=== PATIENT | male | born 1955 | race African-American/Black ===

== ENCOUNTER 2019-01-21 12:27 | Emergency (ER) | payer OTHER ==
[~2019-01-21] VITALS: Ht 172.7 cm; Wt 81.6 kg
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
[2019-01-21] MEDS ORDERED: Methocarbamol 750mg tab ORAL ONE (13:00)
--- NOTE | 2019-01-21 13:20 | NUR ---
ED Nurse Note:pt. had x-rays done
[2019-01-21] MEDS ORDERED: ROBAXIN-750750 MG PO (14:03)
[2019-01-21] MEDS ORDERED: ACETAMINOPHEN-1 EAC1 ORAL (14:03)
[2019-01-21] MEDS ORDERED: IBUPROFEN600 MG ORAL (14:03)
[2019-01-21] MEDS ORDERED: LIDODERM700 M1 TOPIC (14:03)
[2019-01-21 14:06] VITALS: BP 165/98
--- NOTE | 2019-01-21 14:10 | NUR ---
ER DISCHARGE NOTE: Patient is cleared to be discharged per ERMD, pt is aox4, on room air, with stable vital signs. pt was given dc and prescription instructions, pt was able to verbalize understanding, pt is able to ambulate with steady gait. pt took all belongings.
[2019-01-21 14:49] VITALS: BP 165/98
--- NOTE | 2019-01-22 13:04 | Diagnostic Imaging Report ---
Indication: Back pain Comparison: None Findings: 3 views of the lumbar spine were obtained. Bones are osteopenic. There is narrowing of L4-5 disc with vacuum phenomena demonstrated. Mild endplate spur formation noted. Sclerosis of the facets demonstrated multiple levels. IMPRESSION: No acute injury. Degenerative disc disease L4-5. Multilevel facet arthropathy
--- NOTE | 2019-01-22 13:07 | Diagnostic Imaging Report ---
Indication: Right wrist pain Findings: 3 views of the right wrist were obtained. There is no obvious acute fracture identified. There is arthrosis of the radiocarpal joint with narrowing and chondrocalcinosis which includes the TFCC. There is widening of the scapholunate distance indicative of scapholunate dissociation. There is generalized soft tissue swelling present about the wrist. There may be slight dorsal tilt of the lunate which is probably associated with the scapholunate disruption. IMPRESSION: No acute injury appreciated. 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 Moderate arthrosis and chondrocalcinosis noted.
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
== END 2019-01-21 14:10 | disposition home or self-care (01) ==
LOC: EMR 13:30
DX: M54.5 Low back pain (principal); S69.91XA Unspecified injury of right wrist, hand and finger(s), initial encounter; V43.62XA Car passenger injured in collision with other type car in traffic accident, initial encounter; Y92.410 Unspecified street and highway as the place of occurrence of the external cause; I10 Essential (primary) hypertension; Z86.73 Personal history of transient ischemic attack (TIA), and cerebral infarction without residual deficits; M51.36 Other intervertebral disc degeneration, lumbar region; M19.031 Primary osteoarthritis, right wrist
CPT/HCPCS: 72020; 99284